=== PATIENT | male | born 1965 | race Caucasian/White ===

== ENCOUNTER 2017-02-15 10:23 | Emergency (ER) | payer SELFPAY ==
--- NOTE | 2017-02-15 11:04 | ED ---
Throat Pain/Nasal Congestion - HPI Summary HPI Summary: Patient presents with concerns that he has a small peice of sawdust in his eye from yesterday when he was working. He flushed the eye but this morning still felt that something was in the eye. He denies JAVIER, fever, blurred vision, or drainage. - History of Current Complaint Chief Complaint: EDEyeProblem Time Seen by Provider: 02/15/17 10:39 Hx Obtained From: Patient Onset/Duration: Gradual Onset Severity: Mild Associated Signs And Symptoms: Positive: FB Sensation Cough: None - Allergies/Home Medications Allergies/Adverse Reactions: Allergies Allergy/AdvReac Type Severity Reaction Status Date / Time No Known Allergies Allergy Verified 02/15/17 10:48 PMH/Surg Hx/FS Hx/Imm Hx Previously Healthy: Yes Infectious Disease History: No Infectious Disease History: Denies: Traveled Outside the [place] in Last 30 Days - Family History Known Family History: Positive: None - Social History Occupation: Employed Full-time Lives: With Family Alcohol Use: Rare Substance Use Type: Reports: None Smoking Status (MU): Former Smoker Review of Systems Negative: Fever, Chills Negative: Photophobia, Blurred Vision, Diplopia, Drainage, Erythema Negative: Headache All Other Systems Reviewed And Are Negative: Yes Physical Exam Triage Information Reviewed: Yes Vital Signs On Initial Exam: Initial Vitals Temp Pulse Resp BP Pulse Ox 96.5 F 63 20 129/98 99 02/15/17 10:28 02/15/17 10:28 02/15/17 10:28 02/15/17 10:28 02/15/17 10:28 Vital Signs Reviewed: Yes Appearance: Positive: Well-Appearing, Well-Nourished, Pain Distress Skin: Positive: Warm, Skin Color Reflects Adequate Perfusion, Dry, Soft Head/Face: Positive: Normal Head/Face Inspection Eyes: Positive: EOMI, THIAGO, Conjunctiva Clear ENT: Positive: Hearing grossly normal, Pharynx normal Respiratory/Lung Sounds: Positive: Breath Sounds Present Cardiovascular: Positive: RRR Musculoskeletal: Negative: Edema Left, Edema Right Neurological: Positive: Sensory/Motor Intact, Alert, Oriented to Person Place, Time, NV Bundle Intact Distally, Normal Gait Psychiatric: Positive: Affect/Mood Appropriate AVPU Assessment: Alert - Russell Coma Scale Coma Scale Total: 15 Diagnostics - Vital Signs Vital Signs Temp Pulse Resp BP Pulse Ox 02/15/17 10:30 96.8 F 64 20 129/98 98 02/15/17 10:28 96.5 F 63 20 129/98 99 - Laboratory Lab Statement: Any lab studies that have been ordered have been reviewed, and results considered in the medical decision making process. EENT Course/Dx - Differential Diagnoses Differential Diagnoses: Abrasion, Conjunctivitis, Contusion, Keratitis, Periorbital/Orbital Cellulitis, Pharyngitis, Uveitis - Diagnoses Provider Diagnoses: Abrasion of sclera of left eye Discharge - Discharge Plan Condition: Stable Disposition: HOME Patient Education Materials: Corneal Abrasion (ED) Referrals: [facility] [Primary Care Provider] - Additional Instructions: Please use the drops for 24 hours after your symptoms resolve. Call Dr Hernandez' s office if symptoms persist greater that 48 hours. Return to the emergency department if symptoms worsen.
[2017-02-15] MEDS ORDERED: Ciprofloxacin 0.3% OPTH.SOL* 2.5 ML BTL LEFT EYE ONE (11:05)
[2017-02-15 11:14] VITALS: BP 126/87
== END 2017-02-15 11:13 | disposition home or self-care (01) ==
LOC: ED 10:23
DX: S00.212A Abrasion of left eyelid and periocular area, initial encounter (principal); X58.XXXA Exposure to other specified factors, initial encounter; Y93.9 Activity, unspecified; Y92.9 Unspecified place or not applicable; Y99.9 Unspecified external cause status
CPT/HCPCS: 99282; A9270-GY